=== PATIENT | female | born 1965 | race Asian ===

== ENCOUNTER 2023-03-04 15:23 | Outpatient (AMB) | payer OTHER, SELFPAY ==
--- NOTE | 2023-03-04 15:17 | A.OFFVIS_ITS ---
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 She has GE which has been present for few months. She has occasional chest tightness but it is not consistent. She has strong family of coronary artery disease. No orthopnea or PND. PFSH Family History (Updated 03/04/23 @ 15:18 by NESSA Velásquez) Father Heart disease Mother Breast cancer Social History (Updated 03/04/23 @ 15:18 by NESSA Velásquez) Alcohol intake: never Patient Tobacco Use Status: Never used Tobacco Review of Systems Const Denies chills, Denies daytime sleepiness, Denies fatigue, Denies fever(s), Denies frequent falls, Denies night sweats, Denies snoring, Denies weakness, Denies weight gain and Denies weight loss Eyes Denies loss of vision ENT Denies dizziness and Denies hearing loss Card Denies chest pain, Denies chest pain with activity, Denies syncope, Denies rapid heart rate, Denies edema, Denies claudication, Denies leg edema, Denies lightheadedness, Denies palpitations, Denies dyspnea, Denies dyspnea on exertion and Denies orthopnea Resp Denies cough, Denies excessive phlegm production, Denies dyspnea, Denies dyspnea on exertion, Denies snoring and Denies wheezing GI Denies abdominal pain, Denies hematochezia, Denies change in bowel habits, Denies change in stool character, Denies heartburn, Denies nausea and Denies vomiting Denies hematuria, Denies urinary frequency and Denies dysuria Musc Denies arthralgias, Denies muscle weakness, Denies numbness and Denies tingling Skin/Breast Denies nail changes and Denies rash Neuro Denies Abnormal speech present, Denies dizziness, Denies syncope, Denies frequent falls, Denies loss of vision, Denies memory loss, Denies numbness, Denies tingling and Denies weakness Psych Denies depression and Denies memory loss Endo Denies fatigue and Denies palpitations Aller/Immun Denies wheezing Physical Exam Vital Signs: Last Vital Signs Pulse 79 03/04/23 15:19 BP 134/80 03/04/23 15:19 BMI result Body Mass Index 25.5 GENERAL APPEARANCE: in no acute distress, pleasant. NECK: no carotid bruit, no jugular venous distention. SKIN: no suspicious lesions, warm and dry. HEART: no murmurs, regular rate and rhythm. LUNGS: clear to auscultation bilaterally. ABDOMEN: soft, nontender. EXTREMITIES: no edema. PERIPHERAL PULSES: equal. NEUROLOGIC: No gross deficits, AAO X 3 bed in Neuro Speech: No Abnormal speech present Office Procedures EKG Details: Sinus rhythm 70 beats per minute, normal axis, normal EKG, QTC 440 milliseconds. [id number], Complete Assessment & Plan Assessment & Plan (1) GE (dyspnea on exertion): Code(s): R06.09 - Other forms of dyspnea (2) Intermittent palpitations: Code(s): R00.2 - Palpitations Plan [age] year female who is here for assessment of dyspnea on exertion. She occasionally gets chest tightness. These are consistent symptoms. She has gained some weight and has been more sedentary which could be the cause for dyspnea but has significant family history for coronary artery disease. After discussion we have decided to refer her for a coronary CTA. Will also do echocardiography to rule out any structural heart disease and assess for diastolic dysfunction. Blood pressure control is okay currently. She will keep an log of blood pressure at home. Will do some basic blood workup. Thank you for allowing me to participate in the care of your patient. Please feel free to contact me if you have any questions. Orders: Orders B Type Natriuretic Peptide 03/04/23 R06.09 - Other forms of dyspnea Comprehensive [place]. Panel Fast 03/04/23 R06.09 - Other forms of dyspnea Lipid Panel 03/04/23 R06.09 - Other forms of dyspnea TSH reflex Free T4 03/04/23 R06.09 - Other forms of dyspnea Complete Blood Count no Diff 03/04/23 R06.09 - Other forms of dyspnea CT Cardiac Coronary Angio 03/04/23 R06.09 - Other forms of dyspnea CA echo transthoracic complete 03/04/23 R06.09 - Other forms of dyspnea Coding Level of Care Code New Pt Level 4 (64284) Diagnoses GE (dyspnea on exertion) R06.09 Intermittent palpitations R00.2 CPT Codes EKG - CPT: 07804-[id number], Complete ([id number])
[2023-03-04 15:19] VITALS: BP 134/80; PULSE 79; BMI 25.5
== END 2023-03-04 15:41 | disposition home or self-care (01) ==
LOC: HO.HCS 15:23
PROVIDERS: Visit Provider Internal Medicine Cardiovascular Disease
DX: R00.2 Palpitations (principal)
CPT/HCPCS: 93010; 99204

== ENCOUNTER → 2023-03-04 15:23 | Outpatient (BNVA) | payer OTHER, SELFPAY | PROVIDERS: Visit Provider Internal Medicine Cardiovascular Disease | DX: R06.09 Other forms of dyspnea (principal); Z82.49 Family history of ischemic heart disease and other diseases of the circulatory system | CPT/HCPCS: 93005 ==

== ENCOUNTER 2024-12-23 18:20 | Emergency (ER) | payer BC, SELFPAY ==
--- NOTE | ~2024-12-23 | CT_ITS ---
CLINICAL HISTORY: lower abd pain ?diverticulitis CT abdomen and pelvis with contrast Comparison: CT - CT ABDOMEN PELVIS W IV CON - 12/23/24 19:16 EDT Findings: No consolidation or effusion. The liver, gallbladder, spleen, pancreas, kidneys and adrenal glands are normal in appearance. No bowel obstruction, pneumoperitoneum, or pneumatosis. Mild fecal loading in the right colon. No significant diverticular disease. No ascites. No retroperitoneal lymphadenopathy. Pelvic contents unremarkable. Normal appendix. Uterus and adnexa are unremarkable. The bones are intact. IMPRESSION: No acute findings. This document has been electronically signed by: Jeremie Avalos MD on 12/23/2024 20:10:16
[2024-12-23 18:28] VITALS: BP 147/71; PULSE 89; RESP 18; TEMP 36.6; O2SAT 97; BMI 21.3
--- OUTSIDE RECORDS SUMMARY | 2024-12-23 19:01 | XMS_ITS ---
Author Name [facility] Organization Unknown Encounters Encounter Type Encounter Reason Primary Diagnosis Location Date Emergency Abdominal Pain Abdominal Pain [facility] 10/2023 Ambulatory Contact with and (suspected) exposure to covid-19 [facility] 05/14/2021 Care Team Organization Name Specialty Phone Email Start Date End Da te [facility] NO PCP Primary Care 12/28/2023 [facility] 12/28/2023 [facility] 05/15/2021 03/13/2024 [facility] 05/14/2021 05/14/2021 [facility] 02/01/2020 02/01/2020
[2024-12-23 19:04] LABS: Basophils Absolute Auto 0.1 X10*3/uL (0.0-0.2); Basophils Percent Auto 0.8 % (0-2); Eosinophils Absolute Auto 0.4 X10*3/uL (0.0-0.4); Hematocrit 37.6 % (37.0-47.0); Hemoglobin 12.6 g/dl (12.0-16.0); Imm Gran Abs Auto 0.02 X10*3/uL (0.00-0.03); Imm Gran Pct Auto 0.2 % (0.0-0.4); Lymphocytes Absolute Auto 3.2 X10*3/uL (1.2-4.9); Lymphocytes Percent Auto 34.9 % (20-40); MANUAL DIFF FLAG SCAN; Mean Corpuscular HGB Conc 33.5 g/dl (31.0-35.0); Mean Corpuscular Hemoglobin 28.3 pg (27.0-33.0); Mean Corpuscular Volume 84.3 fL (80.0-98.0); Mean Platelet Volume 12.7 fL (9.4-12.3); Monocytes Absolute Auto 0.6 X10*3/uL (0.1-1.2); Monocytes Percent Auto 6.8 % (2-11); Neutrophils Percent Auto 53.3 % (45-73); PLT CLUMP 1; Red Blood Count 4.46 X10*6/uL (4.20-5.50); SCAN SMEAR FLAG 1
--- NOTE | 2024-12-23 19:11 | ED.ABDPAIN ---
HPI - Abdominal Pain General Chief Complaint: Abdominal Pain Stated Complaint: abd discomfort Time Seen by Provider: 12/23/24 18:25 Source: patient Mode of arrival: ambulatory Limitations: no limitations History of Present Illness ED Provider: Tamia Mcintosh NP HPI narrative: Patient is a 59-year-old female who presents emergency department for evaluation of pain to the right side of her abdomen. Reports over the past 6 months she has been experiencing pain just to the right of her navel typically lasts a few minutes before self-resolving. States that this usually occurs a few times throughout the week. Not able to identify any exacerbating factors. However over the past 24 hours she states that she has had an increase in this pain that it is occurring more frequently over the past 24 hours and lasting for a longer duration. Reports having had a previous ultrasound without abnormal findings. Denies fevers, chills, chest pain, nausea, vomiting, hematemesis, diarrhea, constipation, hematochezia, melena, dysuria, urinary frequency, urinary urgency, urinary hesitancy, hematuria. denies pelvic pain or abnormal vaginal discharge, reports last menstrual cycle approximately 10 years prior Related Data Home Medications ?Medication ?Instructions ?Recorded ?Confirmed estradiol 0.05 mg-norethindrone 1 patch transdermal 2XW 03/04/23 03/04/23 0.14 mg/24 hr semiwkly transderm patch (CombiPatch) Allergies Allergy/AdvReac Type Severity Reaction Status Date / Time latex Allergy Unknown Rash Verified 12/23/24 18:29 Review of Systems Review of Systems Yes all other systems are reviewed and are negative PMFSH Past Medical History Attestation statement: The following information was validated with the patient. Source: old records reviewed Family History Family History (Updated 03/04/23 @ 15:18 by NESSA Velásquez) Father Heart disease Mother Breast cancer Social History Social History (Updated 03/04/23 @ 15:18 by NESSA Velásquez) Alcohol intake: never Patient Tobacco Use Status: Never used Tobacco Smoked in Last 30 Days: No Use of substances other than those prescribed or required for medical reasons: No Advance Directives: No Advance Directives Information Provided: No Do you have a plan to hurt others: No Plan Patient : No Physical Exam ED Vital Signs: Vital Signs - 24 hr 12/23/24 18:28 Temperature 97.8 F Pulse Rate 89 Respiratory Rate 18 Blood Pressure 147/71 H Pulse Oximetry 97 Oxygen Delivery Method Room Air BMI result Body Mass Index 21.3 Appearance: Alert.?Oriented to person, place and time. No acute distress.?Normal affect.?? Neck: Normal inspection.? Neck supple.?? CVS: Heart sounds normal. Normal heart rate and rhythm.? Pulses normal.?? Respiratory: No respiratory distress.? Lung sounds clear to auscultation bilaterally?? Abdomen: Soft and non-tender. No rebound tenderness at McBurney's point. Negative psoas sign. Negative Rovsing sign. Negative Boss sign. No CVAT. Normoactive bowel sounds. No pulsatile mass.?? Skin: Skin warm and dry.? Normal skin color.? Extremities: No lower extremity edema.? Neuro: Moves all extremities spontaneously. Sensation intact bilaterally. Ambulates with normal steady gait. Course Reevaluation(s) Reevaluation #1: CBC is without leukocytosis anemia or thrombocytopenia. No electrolyte derangement. No YAZ. Minimally elevated AST/ALT 33/57 respectively elevated lipase at 01:13. Urinalysis without evidence of infection. CT of the abdomen pelvis without acute pathology. These resolved findings were discussed with the patient, advised outpatient follow-up with primary care doctor, reviewed visualized stool burden on CT imaging advised to increase dietary fiber intake. All questions answered. Discussed worrisome signs and symptoms that would warrant re-evaluation in the emergency department Medical Decision Making Medical Decision Making MDM Narrative: Patient is a 59-year-old female with past medical history of hypercholesterolemia who presents emergency department for evaluation of right-sided abdominal pain as per HPI, ongoing over the past 6 months previously intermittent, however increasing severity/frequency over the past 24 hours. No precipitating injury. She is without signs of systemic toxicity afebrile without tachycardia, no hypotension. No rigidity or guarding. No associated chest pain or shortness of breath to suggest pneumonia, no clinical evidence of DVT or personal history of VTE/malignancy to suggest pulmonary embolism. Negative Boss sign, unlikely acute cholecystitis, choledocholithiasis, no fever or jaundice to suggest acute cholangitis, may possibly be biliary colic secondary to cholelithiasis. No rebound tenderness at McBurney's point, rigidity, guarding to suggest acute appendicitis. No appreciable hernia to suggest strangulation/incarceration. Pending serum labs, urinalysis, CT abdomen and pelvis for further evaluation. Declines need for analgesia at this time. Differential Diagnosis Differential Diagnoses: The differential diagnosis associated with the presentation includes (See narrative above) Admission/Observation Consideration of admission/observation: Escalation of care including admission/observation considered (See narrative above ) Lab Data MDM Lab Attestation statement: I reviewed the patient's lab results. CBC is without leukocytosis, anemia, or thrombocytopenia. No electrolyte derangement. No YAZ. Minimally elevated AST/ALT 33/57 respectively, lipase of 113. 12/23/24 18:52 12/23/24 18:52 Labs: Lab Results 12/23/24 12/23/24 Range/Units 18:52 19:36 WBC 9.3 (4.8-10.8) X10*3/uL RBC 4.46 (4.20-5.50) X10*6/uL Hgb 12.6 (12.0-16.0) g/dl Hct 37.6 (37.0-47.0) % MCV 84.3 (80.0-98.0) fL MCH 28.3 (27.0-33.0) pg MCHC 33.5 (31.0-35.0) g/dl RDW 12.0 (11.0-16.0) % Plt Count 168 (160-400) X10*3/uL MPV 12.7 H (9.4-12.3) fL Immature Gran % (Auto) 0.2 (0.0-0.4) % Neut % (Auto) 53.3 (45-73) % Lymph % (Auto) 34.9 (20-40) % Porter % (Auto) 6.8 (2-11) % Eos % (Auto) 4.0 (0-4) % Baso % (Auto) 0.8 (0-2) % Lymph # (Auto) 3.2 (1.2-4.9) X10*3/uL Porter # (Auto) 0.6 (0.1-1.2) X10*3/uL Eos # (Auto) 0.4 (0.0-0.4) X10*3/uL Baso # (Auto) 0.1 (0.0-0.2) X10*3/uL Abs Immat Gran (auto) 0.02 (0.00-0.03) X10*3/uL Absolute Neuts (auto) 5.0 (2.0-8.3) x10*3/uL Absolute Nucleated RBC 0.000 (0.0-0.012) X10*3/uL Nucleated RBC % (auto) 0.0 (0.0-0.2) /100WBC Smear Tech's Comments VERIFIED Sodium 144 (135-145) mmol/L Potassium 3.7 (3.3-5.1) mmol/L Chloride 105 (96-108) mmol/L Carbon Dioxide 29 (22-29) mmol/L Anion Gap 14 (12-20) BUN 16 (9-16) mg/dL Creatinine 1.02 (0.5-1.4) mg/dL Estim Creat Clear Calc 50.3 Estimated GFR 56 Random Glucose 80 (60-115) mg/dL Calcium 9.5 (8.4-10.2) mg/dL Magnesium 2.0 (1.6-2.6) mg/dL Total Bilirubin 0.3 (0.0-1.0) mg/dL AST 33 H (5-31) U/L ALT 57 H (0-31) U/L Alkaline Phosphatase 106 (39-117) U/L C-Reactive Protein 0.13 (< or = 0.50) mg/dL Total Protein 7.4 (6.5-8.0) g/dL Albumin 4.4 (3.5-5.0) g/dL Triglycerides 186 H (<150) mg/dL Cholesterol 129 (<200) mg/dL LDL Cholesterol, Calc 49 (<100) mg/dL HDL Cholesterol 43 (>40) mg/dL Lipase 113 H (8-78) U/L Urine Color Yellow Urine Appearance Clear Urine pH 6.0 (5.0-9.0) Ur Specific [place] 1.015 (1.005-1.025) Urine Protein Negative (Neg-Trace) mg/dL Urine Glucose (UA) Negative (Negative) mg/dL Urine Ketones Negative (Negative) mg/dL Urine Blood Moderate (2+) H (Negative) Urine Nitrite Negative (Negative) Ur Leukocyte Esterase Trace H (Negative) Urine RBC 6-10 H (0-2) /HPF Urine WBC 0-5 (0-5) /HPF Ur Squamous Epith Cells 0-2 (0-2) /HPF Urine Bacteria None Seen (None Seen) Hyaline Casts 0-2 (0-2) /LPF Radiology Impression Discussion of test interpretation with radiology: I have reviewed the radiologist's reading. Radiologist Impression: CT abdomen and pelvis with contrast Comparison: CT - CT ABDOMEN PELVIS W IV CON - 12/23/24 19:16 EDT Findings: No consolidation or effusion. The liver, gallbladder, spleen, pancreas, kidneys and adrenal glands are normal in appearance. No bowel obstruction, pneumoperitoneum, or pneumatosis. Mild fecal loading in the right colon. No significant diverticular disease. No ascites. No retroperitoneal lymphadenopathy. Pelvic contents unremarkable. Normal appendix. Uterus and adnexa are unremarkable. The bones are intact. IMPRESSION: No acute findings. External Record Review External record reviewed: Outpatient record Medications Administered Generic Name Dose Route Start Last Admin Trade Name Freq PRN Reason Stop Dose Admin Sodium Chloride 1,000 mls @ 999 mls/hr 12/23/24 19:30 12/23/24 19:34 Ns IV 12/23/24 20:30 999 mls/hr .Q1H1M CJ Administration Discontinued Medications Generic Name Dose Route Start Last Admin Trade Name Freq PRN Reason Stop Dose Admin Iohexol 100 ml 12/23/24 19:30 12/23/24 19:30 Iohexol 350 Mg/Ml 100 Ml Infus..Btl IV 12/23/24 19:31 85 ml ONCE ONE Administration Discharge Plan Discharge Clinical Impression: Abdominal pain Patient Disposition: Home, Self-Care Instructions: Abdominal Pain (ED) Additional Instructions: Your blood work today was very reassuring. CT scan does not show an obvious cause for your intermittent pain. There is stool that is visualized throughout the bowel, you should consider increasing the dietary fiber intake to help promote further bowel movement. Please contact your primary care provider to arrange for a follow-up visit within 3 days. You may return back to emergency department any new or worsening symptoms or concerns Prescriptions: No Action CombiPatch 0.05-0.14 mg/24 hr patch semiweekly 1 patch transdermal 2XW Rx Instructions: apply 1 patch every 3 days alternating with 1 patch every 4 days Referrals: Physician,Unknown J [Primary Care Provider] - Print Language: Bhutanese
[2024-12-23 19:16] LABS: Alanine Aminotransferase 57 U/L (0-31); Albumin Level 4.4 g/dL (3.5-5.0); Alkaline Phosphatase 106 U/L (39-117); Anion Gap 14 (12-20); Aspartate Amino Transferase 33 U/L (5-31); Bilirubin Total 0.3 mg/dL (0.0-1.0); Blood Urea Nitrogen 16 mg/dL (9-16); C Reactive Protein 0.13 mg/dL (< or = 0.50); Calcium 9.5 mg/dL (8.4-10.2); Carbon Dioxide 29 mmol/L (22-29); Chloride 105 mmol/L (96-108); Cholesterol 129 mg/dL (<200); Creatinine Clr Calc Pharmacy 50.3; Estimated Glomerular Filt Rate 56; Glucose Random 80 mg/dL (60-115); HDL Cholesterol 43 mg/dL (>40); LDL Cholesterol Calculated 49 mg/dL (<100); Lipase 113 U/L (8-78); Potassium 3.7 mmol/L (3.3-5.1); Sodium 144 mmol/L (135-145); Total Protein 7.4 g/dL (6.5-8.0); Triglycerides 186 mg/dL (<150)
[2024-12-23 19:22] LABS: White Blood Count 9.3 X10*3/uL (4.8-10.8)
[2024-12-23 19:23] LABS: Platelet Count 168 X10*3/uL (160-400); SLIDE REVIEW VERIFIED
[2024-12-23] MEDS: iohexoL 350 MG/ML 100 ML INFUS..BTL IV (19:30)
[2024-12-23] MEDS: 0.9 % Sodium Chloride 1,000 ML 999 ML IV (19:34)
[2024-12-23 19:43] LABS: Appearance Urine Clear; Color Urine Yellow; Glucose Urine UA Negative (Negative); Leukocyte Esterase Urine Trace (Negative); Nitrite Urine Negative (Negative); Specific Gravity - Urine 1.015 (1.005-1.025); UMIC TRIGGER UACC YES; Urine Blood Moderate (2+) (Negative); Urine Ketones Negative (Negative); Urine Protein Negative (Neg-Trace)
[2024-12-23 19:45] LABS: Bacteria Urine None Seen (None Seen); Hyaline Casts Urine 0-2 /LPF (0-2); Squamous Epithelial Cell Urine 0-2 /HPF (0-2); WBC Urine 0-5 /HPF (0-5)
[2024-12-23 20:25] VITALS: BP 147/71; PULSE 89; RESP 18; TEMP 36.6; O2SAT 97
== END 2024-12-23 20:26 | disposition home or self-care (01) ==
PROVIDERS: Nurse Practitioner Family; Emergency Provider Internal Medicine
DX: R10.9 Unspecified abdominal pain (principal); E78.00 Pure hypercholesterolemia, unspecified; R06.09 Other forms of dyspnea
CPT/HCPCS: 36415; 74177; 80053; 80061; 81001; 83690; 83735; 85025; 86140; 96360; 99284; Q9967

== ENCOUNTER → 2024-12-23 18:31 | Outpatient (BNV) | payer BC, SELFPAY | PROVIDERS: Emergency Provider Internal Medicine; Visit Provider Radiology Diagnostic Radiology | DX: R10.30 Lower abdominal pain, unspecified (principal) | CPT/HCPCS: 74177 ==